=== PATIENT | male | born 1970 | race Caucasian/White ===

== ENCOUNTER 2019-06-23 20:27 | Observation (INO) ==
[2019-06-23] MEDS ORDERED: MoRPHine SULFATE 4 MG/ML 1 ML CARP\\VIAL IV STA (20:54)
[2019-06-23] MEDS ORDERED: ONDANSETRON INJ 2 MG/ML 2 ML VIAL IV STA (20:54)
--- NOTE | 2019-06-23 21:13 | Emergency Department Note ---
History of Present Illness General Chief complaint: Back Injury/Pain Stated complaint: BACK PAIN Time Seen by Provider: 06/23/19 20:43 History of Present Illness Maximum Pain Intensity: 8 This is a 49-year-old male that presents to the emergency department via private vehicle with complaints of "back pain". The patient notes that he has had back pain for the past few days, and is on the left side. Over the past few days it did calm down and then today increased. He is not sure if it is a muscle spasm or what may be causing the area of pain but notes that he has never had this bef ore. No recent trauma or injury. No chest pain, shortness of breath, fevers, chills, abdominal pain. Pain is an 8/10. It is sharp in nature. It does not radiate down the legs. No lower extremity weakness, bowel or bladder incontinence or numbness or tingling in the genital region. Home Medications Home Medications Medication Instructions Recorded Confirmed Type No Known Home Medications 06/23/19 06/23/19 History Allergies Allergy/AdvReac Type Severity Reaction Status Date / Time No Known Allergies Allergy Unverified 06/23/19 21:17 Past Med/Surg History Medical History Fatty infiltration of liver Surgical History No pertinent past surgical history Social History Preferred Language: [place] [employer] Apprentice Required: No Beliefs That Will Affect Care: None Current Living Situation: Alone Other Information That Helps Us Care for You: No Feels Safe at Home: Yes Safety Concerns: Feels Safe At This Time Smoking Status: Current every day smoker Hx Alcohol Use: No Hx Substance Use: No Review of Systems A total of 10 systems reviewed and were otherwise negative Physical Exam Vital Signs Vital Signs - 24 hr 06/23/19 20:40 06/23/19 23:40 Temperature 36.7 C Temperature Source Oral Sepsis Recent Fever Within 48 Hours No Sepsis New/Unexplained Change in Mental Status No Sepsis Action Taken by Nursing No Action Required Pulse Rate 91 H Pulse Rate [Finger] 83 Pulse Rhythm Regular Pulse Strength Normal Respiratory Rate 20 20 Respiratory Effort / Characteristics Non-Labored Spontaneous Respiratory Depth Normal Respiratory Pattern Regular Blood Pressure 120/68 Blood Pressure [Left Arm] 109/59 L Blood Pressure Mean 85 Blood Pressure Mean [Left Arm] 75 Blood Pressure Position Sitting Pulse Oximetry 96 98 Oxygen Delivery Method Room Air Room Air VITAL SIGNS - Vital signs and nursing notes were reviewed. Stable and afebrile. GENERAL -49-year-old male appearing his stated age who is in no acute distress b ut appears to be in a great deal of pain and is in the position in the bed. Communicates well with provider and answers questions appropriately. SKIN -patient has a very faint erythematous hue to the bilateral flanks (which the patient attributes to sweating recently and a "heat rash".) No evidence of herpetic lesion. HEAD - NC/AT. EYES - PERRL with EOMI bilaterally. Sclera anicteric. Palpebral conjunctiva pink and moist with no injection noted. EARS - No deformities of external structures noted on gross examination bilaterally. NOSE - Midline and without cyanosis. No epistaxis or purulent drainage noted. MOUTH/OROPHARYNX - Without perioral cyanosis. NECK - Neck with FROM. Supple to palpation. No lymphadenopathy noted. No nuchal rigidity. LUNGS - Chest wall symmetric without accessory muscle use, intercostals retractions, or central cyanosis. Normal vesicular breath sounds CTA B/L. No wheezes, rales, or rhonchi appreciated. CARDIAC - RRR with S1/S2. No murmur, rubs, or gallops appreciated. ABDOMEN - Abdominal contour normal without pulsations or visible masses. BS normoactive all four quadrants. No tenderness, palpable masses, hepatosplenomegaly, or ascites noted. MUSCULOSKELETAL: There is reproducible tenderness to palpation overlying the patient's left paraspinous musculature of the lumbar spine with palpable spasm. No direct tenderness overlying the C-spine, T-spine or L-spine. EXTREMITIES - No clubbing or peripheral cyanosis. No pretibial edema present. Patient is able to ambulate but not well on his own. +5/5 strength noted in UE/LE bilaterally. NEUROLOGIC - Cranial nerves II through XII grossly intact. Sensory intact to light touch throughout. PSYCH - A&Ox3 and cooperates fully with examiner. Pt is very pleasant and interacts well with examiner. Course Administered Medications Baclofen (Lioresal) 10 mg PO BID DANY Stop: 07/24/19 00:39 Last Admin: 06/24/19 01:30 Dose: Not Given Documented by: [id number] Hydromorphone HCl (Dilaudid) 1 mg IV Q3H PRN PRN Reason: Pain Stop: 07/08/19 00:39 Last Admin: 06/24/19 01:41 Dose: 1 mg Documented by: [id number] Discontinued Medications Baclofen (Lioresal) Confirm Administered Dose 10 mg PO .STK-MED ONE Stop: 06/24/19 00:09 Last Admin: 06/24/19 00:15 Dose: 10 mg Documented by: [id number] Diazepam (Valium) 5 mg IV NOW STA Stop: 06/23/19 22:36 Last Admin: 06/23/19 22:43 Dose: 5 mg Documented by: [id number] Hydromorphone HCl (Dilaudid) 0.5 mg IV NOW STA Stop: 06/23/19 22:09 Last Admin: 06/23/19 22:14 Dose: 0.5 mg Documented by: [id number] Sodium Chloride (Nss 1000ml) 1,000 mls @ 999 mls/hr IV .Q1H1M DANY Stop: 06/24/19 00:15 Last Infusion: 06/24/19 00:04 Dose: 0 mls/hr Documented by: [id number] Admin: 06/23/19 23:13 Dose: 999 mls/hr Documented by: [id number] Ketorolac Tromethamine (Toradol) 30 mg IV NOW STA Stop: 06/23/19 23:09 Last Admin: 06/23/19 23:17 Dose: 30 mg Documented by: [id number] Admin: 06/23/19 23:13 Dose: 30 mg Documented by: [id number] Morphine Sulfate (Morphine Sulfate) 4 mg IV NOW STA Stop: 06/23/19 20:55 Last Admin: 06/23/19 21:37 Dose: 4 mg Documented by: [id number] Ondansetron HCl (Zofran) 4 mg IV NOW STA Stop: 06/23/19 20:55 Last Admin: 06/23/19 21:35 Dose: 4 mg Documented by: [id number] Medical Decision Making Laboratory Data Result diagrams: 06/23/19 21:26 06/23/19 21:26 Lab Results 06/23/19 06/23/19 06/23/19 Range/Units 21:26 21:26 23:17 WBC 10.34 (4.8-10.8) K/uL RBC 4.06 L (4.7-6.1) M/uL Hgb 14.2 (14.0-18.0) g/dL Hct 40.1 L (42-52) % MCV 98.8 (80-100) fL MCH 35.0 H (25-34) pg MCHC 35.4 (32-36) g/dL RDW Std Deviation 45.0 (36.4-46.3) fL RDW Coeff of Piter 12.5 (11.5-14.5) % Plt Count 239 (130-400) K/uL MPV 8.9 (7.4-10.4) fL Immature Gran % (Auto) 1.6 % Neut % (Auto) 63.4 % Lymph % (Auto) 21.0 % [place] % (Auto) 6.4 % Eos % (Auto) 7.2 % Baso % (Auto) 0.4 % Immature Gran # (Auto) 0.17 H (0.00-0.02) K/uL Neut # (Auto) 6.56 H (1.4-6.5) K/uL Lymph # (Auto) 2.17 (1.2-3.4) K/uL [place] # (Auto) 0.66 H (0.11-0.59) K/uL Eos # (Auto) 0.74 H (0-0.5) K/uL Baso # (Auto) 0.04 (0-0.2) K/uL Sodium 140 (136-145) mmol/L Potassium 3.6 (3.5-5.1) mmol/L Chloride 108 H (98-107) mmol/L Carbon Dioxide 25 (21-32) mmol/L Anion Gap 7.0 (3-11) BUN 11 (7-18) mg/dl Creatinine 1.05 (0.6-1.4) mg/dl Est Cr Clr Drug Dosing 99.1 ml/min Est GFR ( Amer) 96.8 Est GFR (Non-Af Amer) 83.5 BUN/Creatinine Ratio 10.9 (10-20) Glucose 90 (70-99) mg/dl Calcium 8.8 (8.5-10.1) mg/dl Total Bilirubin 0.3 (0.2-1) mg/dl AST 32 (15-37) U/L ALT 56 (12-78) U/L Alkaline Phosphatase 87 (45-117) U/L Troponin I < 0.015 (0-0.045) ng/ml Total Protein 7.3 (6.4-8.2) gm/dl Albumin 3.5 (3.4-5.0) gm/dl Globulin 3.8 (2.5-4.0) gm/dl Albumin/Globulin Ratio 0.9 (0.9-2) Urine Color Yellow Urine Appearance Clear (Clear) Urine pH 5.0 (4.5-7.5) Ur Specific [place] 1.023 (1.000-1.030) Urine Protein Negative (Negative) Urine Glucose (UA) Negative (Negative) Urine Ketones Negative (Negative) Urine Blood Negative (Negative) Urine Nitrite Negative (Negative) Urine Bilirubin Negative (Negative) Urine Urobilinogen Negative (Negative) Ur Leukocyte Esterase Negative (Negative) Imaging Data Radiologist's Impression: CT SCAN OF THE ABDOMEN AND PELVIS WITHOUT CONTRAST CLINICAL HISTORY: Left flank and low back pain COMPARISON STUDY: No previous studies for comparison. TECHNIQUE: CT scan of the abdomen and pelvis was performed from the lung bases to the proximal femurs. Images are reviewed in the axial, sagittal, and coronal planes. IV contrast was not administered for this examination. A dose lowering technique was utilized adhering to the principles of ALARA. CT DOSE: 772.63 mGy.cm FINDINGS: Lower chest: The heart is normal in size and configuration, without pericardial effusion. The lung bases and pleural spaces are clear. Liver: There is borderline hepatic steatosis. No focal masses are visualized in this noncontrast study. Gallbladder: Unremarkable. Spleen: Normal in size and attenuation. Pancreas: Unremarkable. Adrenal glands: Unremarkable. Kidneys: There is a punctate nonobstructing left renal calculus. There is no hydronephrosis. No ureteral or bladder calculi are visualized. Bowel: There are no transition zones indicate bowel obstruction. There is no evidence of acute diverticulitis. The appendix appears normal. Peritoneum: There is no intraperitoneal free air or abdominal ascites. Vasculature: The abdominal aorta is normal in course and caliber. Adenopathy: None. Pelvic viscera: The bladder, and pelvic viscera are unremarkable. Skeletal structures: No destructive osseous lesions are seen. There are postsurgical changes of a total right hip arthroplasty IMPRESSION: 1. No acute intra-abdominal or pelvic findings 2. No evidence of bowel obstruction. No evidence of free air 3. Punctate nonobstructing left renal calculus. No ureteral or bladder calculi identified 4. Normal appendix. No evidence of acute diverticulitis. Electronically signed by: Can Hodges M.D. 06/23/2019 10:30 PM MDM Narrative Patient was seen and evaluated as above in room D06. Review was performed of nursing notes and vital signs. After obtaining a thorough history and physical examination the above work up was performed. He presents today with back pain, left side, reproducible with palpation in the paraspinous musculature of the lumbar spine. No evidence of cauda equina syndrome. No risk factors identified for epidural abscess. Faint erythematous rash noted to the patient's back but on both flanks and is not felt to be shingles. Patient notes that he was sweati ng today quite a bit and believes it is a heat rash. It does not look to be infectious nor the cause of his pain. I will note that although this is felt to initially have been a muscle spasm in the lumbar region such as from a strain his pain seems to be much more. For that reason additional work-up was performed. CBC reveals no leukocytosis or anemia. Metabolic panel is negative. Urinalysis is negative. CT scan of the abdomen and pelvis without contrast was also ordered and was negative. Because of the continued pain despite multiple rounds of IV medication and rest, decision was made to obtain an EKG and troponin to further the work-up. Although the troponin was negative the EKG was abnormal. There were multiple T wave inversions throughout the EKG. Patient denied chest pain. I do believe that further evaluation and management in the inpatient setting is warranted and discussed the findings with the hospitalist. He will be admitted for further evaluation and management. Patient was amenable to staying. Case was discussed with the attending physician. GCS: 15 In the evaluation and treatment of this patient the following differential diagnosis entertained: Fracture, dislocation, subluxation, cauda equina syndrome, AAA, diverticulitis, appendicitis, torsion, osteomyelitis, piriformis syndrome, strain, sprain, among others. Impression & Plan Acute left-sided low back pain Discharge Plan Visit Data *Final* Discharge Date/Time: 06/24/19 00:16 Chief Complaint: Back Injury/Pain Stated Complaint: BACK PAIN ED Provider: Vijay Stone ED Midlevel Provider: Tyler Hoffman Discharge Problem: Acute left-sided low back pain Patient Disposition: Admitted As Inpatient Condition: Good Discharge Instructions Interventions: ED Discharge Assessment Last Done: 06/24/19 00:16
[2019-06-23 21:40] LABS: Basophils # (auto) 0.04 K/uL (0-0.2); Basophils % (auto) 0.4 %; Eosinophils # (auto) 0.74 K/uL (0-0.5); Eosinophils % (auto) 7.2 %; Hematocrit (blood only) 40.1 % (42-52); Hemoglobin 14.2 g/dL (14.0-18.0); Immature Granulocytes # (auto) 0.17 K/uL (0.00-0.02); Immature Granulocytes % (auto) 1.6 %; Lymphocytes # (auto) 2.17 K/uL (1.2-3.4); Mean Corpuscular Hgb Conc 35.4 g/dL (32-36); Mean Corpuscular Volume 98.8 fL (80-100); Mean Platelet Volume 8.9 fL (7.4-10.4); Monocytes # (auto) 0.66 K/uL (0.11-0.59); Monocytes % (auto) 6.4 %; Neutrophils # (auto) 6.56 K/uL (1.4-6.5); Neutrophils % (auto) 63.4 %; Platelet Count 239 K/uL (130-400); RDW Coefficient of Variation 12.5 % (11.5-14.5); Red Blood Count 4.06 M/uL (4.7-6.1); White Blood Count 10.34 K/uL (4.8-10.8)
[2019-06-23 22:00] LABS: Alanine Aminotransferase 56 U/L (12-78); Albumin Level 3.5 gm/dl (3.4-5.0); Aspartate Aminotransferase 32 U/L (15-37); BUN Creatinine Ratio 10.9 (10-20); Blood Urea Nitrogen 11 mg/dl (7-18); Calcium 8.8 mg/dl (8.5-10.1); Carbon Dioxide 25 mmol/L (21-32); Chloride 108 mmol/L (98-107); Creatinine Clr Calc Pharmacy 99.1 ml/min; Est GFR (African American) 96.8; Est GFR (Non-African American) 83.5; Glucose 90 mg/dl (70-99); Potassium 3.6 mmol/L (3.5-5.1); Sodium 140 mmol/L (136-145)
[2019-06-23 22:02] LABS: Albumin Globulin Ratio 0.9 (0.9-2); Alkaline Phosphatase 87 U/L (45-117); Bilirubin,Total 0.3 mg/dl (0.2-1); Globulin 3.8 gm/dl (2.5-4.0); Total Protein 7.3 gm/dl (6.4-8.2)
[2019-06-23] MEDS ORDERED: HYDROmorphone INJ 0.5 MG/0.5 ML SYR IV STA (22:08)
--- NOTE | 2019-06-23 22:31 | CT Scan Report ---
CT SCAN OF THE ABDOMEN AND PELVIS WITHOUT CONTRAST CLINICAL HISTORY: Left flank and low back pain COMPARISON STUDY: No previous studies for comparison. TECHNIQUE: CT scan of the abdomen and pelvis was performed from the lung bases to the proximal femurs . Images are reviewed in the axial, sagittal, and coronal planes. IV contrast was not administered fo r this examination. A dose lowering technique was utilized adhering to the principles of ALARA. CT DOSE: 772.63 mGy.cm FINDINGS: Lower chest: The heart is normal in size and configuration, without pericardial effusion. The lung ba ses and pleural spaces are clear. Liver: There is borderline hepatic steatosis. No focal masses are visualized in this noncontrast stud y. Gallbladder: Unremarkable. Spleen: Normal in size and attenuation. Pancreas: Unremarkable. Adrenal glands: Unremarkable. Kidneys: There is a punctate nonobstructing left renal calculus. There is no hydronephrosis. No urete ral or bladder calculi are visualized. Bowel: There are no transition zones indicate bowel obstruction. There is no evidence of acute divert iculitis. The appendix appears normal. Peritoneum: There is no intraperitoneal free air or abdominal ascites. Vasculature: The abdominal aorta is normal in course and caliber. Adenopathy: None. Pelvic viscera: The bladder, and pelvic viscera are unremarkable. Skeletal structures: No destructive osseous lesions are seen. There are postsurgical changes of a tot al right hip arthroplasty IMPRESSION: 1. No acute intra-abdominal or pelvic findings 2. No evidence of bowel obstruction. No evidence of free air 3. Punctate nonobstructing left renal calculus. No ureteral or bladder calculi identified 4. Normal appendix. No evidence of acute diverticulitis. Electronically signed by: Can Hodges M.D. 06/23/2019 10:30 PM
[2019-06-23] MEDS ORDERED: DIAZEPAM 5 MG/ML INJ 10ML VIAL IV STA (22:35)
[2019-06-23] MEDS: KETOROLAC 30 MG/ML VIAL IV STA ×2 (23:13→23:17)
[2019-06-23] MEDS ORDERED: SODIUM CHLORIDE 0.9% 1000ML 1,000 ML IV SCH (23:15)
[2019-06-23 23:26] LABS: Appearance Urine Clear (Clear); Bilirubin Urine Negative (Negative); Blood Urine Negative (Negative); Color Urine Yellow; Glucose Urine UA Negative (Negative); Ketones Urine Negative (Negative); Leukocyte Esterase Urine Negative (Negative); Nitrite Urine Negative (Negative); Protein Urine Negative (Negative); Specific Gravity Urine 1.023 (1.000-1.030); Urobilinogen Urine Negative (Negative)
[2019-06-23 23:58] LABS: Troponin I < 0.015 ng/ml (0-0.045)
[2019-06-24] MEDS ORDERED: BACLOFEN 10 MG TAB PO ONE (00:08)
[2019-06-24] MEDS ORDERED: ONDANSETRON INJ 2 MG/ML 2 ML VIAL IV PRN (00:40)
[2019-06-24] MEDS ORDERED: ACETAMINOPHEN 325 MG TAB PO PRN (00:40)
[2019-06-24] MEDS ORDERED: POLYETHYLENE (MIRALAX) 17 GM PACK PO PRN (00:40)
[2019-06-24] MEDS ORDERED: HYDROmorphone INJ 1 MG/ML SYRINGE IV PRN (00:40)
--- NOTE | 2019-06-24 00:45 | History and Physical Report ---
DATE OF ADMISSION: 06/23/2019 CHIEF COMPLAINT: Severe back pain. HISTORY OF PRESENT ILLNESS: This 49-year-old male with no significant past medical history, not on any medications, history of alcoholism, asthma presents with severe back pain. The patient is from [place], he is working in [employer] area. He says he is having ongoing back pain since last 2 days, but got worse today and came to the ER. Received Dilaudid, Toradol, morphine and Valium, still has significant pain. CT of abdomen and pelvis was done which was unremarkable. There is some macular rash in the right flank region, but he says that is heat rash because of putting some heat pads. Requesting for pain medications .Currently hemodynamically stable. Denies any other medical problems. Denies any diarrhea or constipation. No bowel or bladder incontinence. He says he is not able to ambulate because of severe pain and is crunching in the bed. Denies any chest pain, no shortness of breath, no cough, no fever, no chills, no headache, no blurred vision, no earache, no runny nose. No nausea, no vomiting, no abdominal pain. Otherwise, he is doing okay. ALLERGIES: No known drug allergies. PAST MEDICAL HISTORY: Denies any past medical history. PAST SURGICAL HISTORY: status post hip surgery. MEDICATIONS: None. FAMILY HISTORY: Denies any family history. SOCIAL HISTORY: Says he smokes less than half pack a day. He used to drink alcohol in the past but left long time ago. Denies any drug use. REVIEW OF SYMPTOMS: As per HPI. Rest of review of symptoms negative. PHYSICAL EXAMINATION: GENERAL: The patient is of moderate build, not in acute distress. VITAL SIGNS: Temperature 36.7, pulse 83, respiratory rate 20, blood pressure 109/59, oxygen 98% on room air. HEENT: No pallor, no icterus. Pupils equal, round, reactive to light. NECK: No neck masses. Supple. CARDIOVASCULAR: S1, S2 heard, regular rate and rhythm, no murmur, no gallop. RESPIRATORY SYSTEM: Normal AP diameter. No accessory muscle use. No wheezing, no crackles. ABDOMEN: Soft, bowel sounds present, nontender. No distention. CENTRAL NERVOUS SYSTEM: Nonfocal. EXTREMITIES: No edema, no erythema. MUSCULOSKELETAL: No spinal tenderness appreciated. SKIN: mild macular rash in the left flank region. LABORATORY DATA: WBC 10, hemoglobin 14.2, hematocrit 40.1, platelets 239. Sodium 140, potassium 3.6, chloride 108, bicarbonate 25, BUN 11, creatinine 1.05, serum glucose 90, calcium 8.8, total bilirubin 0.3, AST 32, ALT 56, alkaline phosphatase 87. Troponin I less than 0.015. Urinalysis is negative. CT abdomen and pelvis, no evidence of intra-abdominal or pelvic findings, no evidence of bowel obstruction, no evidence of free air punctate, nonobstructing left renal calculus, no ureteral or bladder calculi identified and normal appendix. No evidence of acute diverticulitis. EKG:Sinus rhythm at rate of 77. non specific t wave abnormality ASSESSMENT AND PLAN: This 49-year-old male who presents with severe back pain, intractable back pain, on the left side, nonradiating, going on for last [address] of abdomen and pelvis unremarkable. Labs were unremarkable. Received significant pain medication in the ER, still has a lot of pain and ambulatory dysfunction. We will observe patient in the hospital. We will give IV Dilaudid p.r.n. We will place patient on baclofen. PT and OT. If it is not improving, will consider MRI and pain management consult. ER checked [place] drug monitoring [place] and no recent narcotic meds as per ER. 2. Tobacco abuse. Needs counseling. 3. Questionable ekg changes. T wave inversions in inferior leads in first ekg and it was not a good study. Repeat ekg was unremarkable. Troponin negative. No chest pain or sob.Monitor in tele. Follw serial CE. 4. Deep venous thrombosis prophylaxis, sequential compression devices for now. DISPOSITION: Observation in medical floor. PT and OT prior to discharge. Social Service to help with discharge planning. MARLENE
[2019-06-24 01:25] LABS: Creatine Kinase 269 U/L (39-308); Troponin I < 0.015 ng/ml (0-0.045)
[2019-06-24] MEDS: BACLOFEN 10 MG TAB PO SCH ×2 (01:30→08:13)
[2019-06-24 07:10] LABS: Basophils # (auto) 0.05 K/uL (0-0.2); Basophils % (auto) 0.6 %; Eosinophils # (auto) 0.72 K/uL (0-0.5); Eosinophils % (auto) 9.1 %; Hematocrit (blood only) 41.1 % (42-52); Hemoglobin 13.7 g/dL (14.0-18.0); Immature Granulocytes # (auto) 0.18 K/uL (0.00-0.02); Immature Granulocytes % (auto) 2.3 %; Lymphocytes # (auto) 2.13 K/uL (1.2-3.4); Lymphocytes % (auto) 26.8 %; Mean Corpuscular Hgb Conc 33.3 g/dL (32-36); Mean Platelet Volume 9.2 fL (7.4-10.4); Monocytes # (auto) 0.59 K/uL (0.11-0.59); Monocytes % (auto) 7.4 %; Neutrophils # (auto) 4.28 K/uL (1.4-6.5); Neutrophils % (auto) 53.8 %; Platelet Count 216 K/uL (130-400); RDW Coefficient of Variation 12.6 % (11.5-14.5); RDW Standard Deviation 46.3 fL (36.4-46.3); Red Blood Count 4.07 M/uL (4.7-6.1); White Blood Count 7.95 K/uL (4.8-10.8)
[2019-06-24 07:47] LABS: BUN Creatinine Ratio 14.7 (10-20); Calcium 8.2 mg/dl (8.5-10.1); Creatinine Clr Calc Pharmacy 121.5 ml/min; Est GFR (African American) 119.4; Magnesium 2.4 mg/dl (1.8-2.4); Potassium 3.6 mmol/L (3.5-5.1)
--- NOTE | 2019-06-24 11:43 | Hospitalist Progress Note ---
Date of Service June 24, 2019 Assessment & Plan (1) Acute left-sided low back pain: ASSESSMENT AND PLAN: This 49-year-old male who presents with severe back pain, intractable back pain, on the left side, nonradiating, going on for last [address] of abdomen and pelvis unremarkable. Labs were unremarkable. Received significant pain medication in the ER, still has a lot of pain and ambulatory dysfunction. We will observe patient in the hospital. NSAIDS, PO Tylenol, PO OXY, IV MSO4, Elavil, ICE, PT and OT. If it is not improving, will consider MRI and pain management consult. ER checked [place] drug monitoring [place] and no recent narcotic meds as per ER. 2. Tobacco abuse. Needs counseling. 3. Questionable ekg changes. T wave inversions in inferior leads in first ekg and it was not a good study. Repeat ekg was unremarkable. Troponin negative. No chest pain or sob. DC tele. 4. Deep venous thrombosis prophylaxis, sequential compression devices for now. DISPOSITION: Observation on medical floor. PT and OT prior to discharge. Social Service to help with discharge planning. ROS-No Headache, No Visual Changes, No Nausea, No Vomiting, No Fever, No Chills, No Neck Pain or Stiffness, No Chest Pain, No Palpitations, No SOB, No ROSS, No Cough, No Sputum, No Wheezing, No Abdominal Pain, No Diarrhea, No Hematemesis, No Hemoptysis, No Unexpected Weight Loss, No Flank pain, No Melena, No Hematochezia, No Frequency, No Urgency, No Burning, No Hematuria, No Rashes, No Diaphoresis. Appetite is Normal, +Back Pain Physical Exam Gen-AAO x 3, NAD, Afebrile, Oversedated Head-NCAT, EOMI, PERRLA, Anicteric Sclera, No Posterior Pharyngeal Erythema Neck-Supple, No JVD, No Thyromegaly, No Masses, No LAD, No Bruits Lungs-Clear to Auscultation Bilaterally, No Rales, No Rhonchi, No Wheezing, No Crepitus Chest-No S4, +S1, +S2, No S3, No Murmurs, No Rubs, No Gallops, No Ectopy Abdomen-Soft, Bowel Sounds Present, Non Tender, Non Distended, No Hepatomegaly, No Splenomegaly, No Palpable Masses, No Rebound, No Rigidity, No Guarding Musculoskeletal-Full Range of Motion Bilaterally, No CVAT Extremities-No Cyanosis, No Clubbing, No Edema Nuero-Cranial Nerves II-XII grossly intact, Motor WNL, DTRs WNL, Strength WNL, Non Focal Psych-Normal Mood Results & Data Vital Signs (Past 12 Hours) Vital Signs Temp Pulse Pulse Resp BP BP Pulse Ox 06/24/19 08:00 65 06/24/19 07:22 36.3 C L 73 16 114/73 06/24/19 03:21 36.5 C 65 17 104/61 96 06/24/19 01:22 36.5 C 75 16 115/68 95 06/24/19 00:41 36.4 C L 77 20 109/68 96 06/24/19 00:16 85 20 142/90 H 98 06/23/19 23:40 83 20 109/59 L 98 Labs checked
[2019-06-24] MEDS ORDERED: MoRPHine SULFATE 10 MG/ML CARP/VIAL IV PRN (11:44)
[2019-06-24] MEDS ORDERED: OXYCODONE HCL IR 5 MG TAB (IMMEDIATE RELEASE) PO PRN (11:47)
[2019-06-24] MEDS ORDERED: ACETAMINOPHEN 500 MG TAB PO SCH (14:00)
[2019-06-24] MEDS: AMITRIPTYLINE HCL 25 MG TAB PO SCH ×2 (14:55→22:17)
[2019-06-24] MEDS: ACETAMINOPHEN 500 MG TAB PO SCH ×3 (14:55→22:17)
[2019-06-25] MEDS: ACETAMINOPHEN 500 MG TAB PO SCH ×6 (01:59→21:52)
[2019-06-25] MEDS: AMITRIPTYLINE HCL 25 MG TAB PO SCH ×3 (05:59→21:52)
--- NOTE | 2019-06-25 11:38 | Discharge Summary ---
Date of Service June 25, 2019 Admission HPI Per Admitting Provider HISTORY OF PRESENT ILLNESS: This 49-year-old male with no significant past medical history, not on any medications, history of alcoholism, asthma presents with severe back pain. The patient is from [place], he is working in [place] area. He says he is having ongoing back pain since last 2 days, but got worse today and came to the ER. Received Dilaudid, Toradol, morphine and Valium, still has significant pain. CT of abdomen and pelvis was done which was unremarkable. There is some macular rash in the right flank region, but he says that is heat rash because of putting some heat pads. Requesting for pain medications .Currently hemodynamically stable. Denies any other medical problems. Denies any diarrhea or constipation. No bowel or bladder incontinence. He says he is not able to ambulate because of severe pain and is crunching in the bed. Denies any chest pain, no shortness of breath, no cough, no fever, no chills, no headache, no blurred vision, no earache, no runny nose. No nausea, no vomiting, no abdominal pain. Otherwise, he is doing okay. Admission Exam Per Admitting Provider GENERAL: The patient is of moderate build, not in acute distress. VITAL SIGNS: Temperature 36.7, pulse 83, respiratory rate 20, blood pressure 109/59, oxygen 98% on room air. HEENT: No pallor, no icterus. Pupils equal, round, reactive to light. NECK: No neck masses. Supple. CARDIOVASCULAR: S1, S2 heard, regular rate and rhythm, no murmur, no gallop. RESPIRATORY SYSTEM: Normal AP diameter. No accessory muscle use. No wheezing, no crackles. ABDOMEN: Soft, bowel sounds present, nontender. No distention. CENTRAL NERVOUS SYSTEM: Nonfocal. EXTREMITIES: No edema, no erythema. MUSCULOSKELETAL: No spinal tenderness appreciated. SKIN: mild macular rash in the left flank region. Principal Diagnosis Back Pain Discharge Exam Physical Exam Gen-AAO x 3, NAD, Afebrile, Oversedated Head-NCAT, EOMI, PERRLA, Anicteric Sclera, No Posterior Pharyngeal Erythema Neck-Supple, No JVD, No Thyromegaly, No Masses, No LAD, No Bruits Lungs-Clear to Auscultation Bilaterally, No Rales, No Rhonchi, No Wheezing, No Crepitus Chest-No S4, +S1, +S2, No S3, No Murmurs, No Rubs, No Gallops, No Ectopy Abdomen-Soft, Bowel Sounds Present, Non Tender, Non Distended, No Hepatomegaly, No Splenomegaly, No Palpable Masses, No Rebound, No Rigidity, No Guarding Musculoskeletal-Full Range of Motion Bilaterally, No CVAT Extremities-No Cyanosis, No Clubbing, No Edema Nuero-Cranial Nerves II-XII grossly intact, Motor WNL, DTRs WNL, Strength WNL, Non Focal Psych-Normal Mood Discharge Data Allergies Allergy/AdvReac Type Severity Reaction Status Date / Time No Known Allergies Allergy Unverified 06/23/19 21:17 Consultations 06/23/19 23:25 ED Decision to Admit Stat Current Diagnoses Low back pain (06/23/19) Allergies No Known Allergies Allergy (Unverified 06/23/19 21:17) Height/Weight/Isolation Height 5 ft 10 in Weight 92.5 kg Chemistry 06/23/19 06/24/19 21:26 06:36 Sodium 140 141 Potassium 3.6 3.6 Chloride 108 H 107 Carbon Dioxide 25 27 Anion Gap 7.0 7.0 BUN 11 12 Creatinine 1.05 0.85 Glucose 90 90 Urinalysis 06/23/19 23:17 Urine Color Yellow Urine Appearance Clear Urine pH 5.0 Ur Specific [place] 1.023 Urine Protein Negative Urine Glucose (UA) Negative Urine Ketones Negative Urine Blood Negative Urine Nitrite Negative Urine Bilirubin Negative Ordered Studies 06/23/19 20:53 CT abd pelvis wo con IMPRESSION: 1. No acute intra-abdominal or pelvic findings 2. No evidence of bowel obstruction. No evidence of free air 3. Punctate nonobstructing left renal calculus. No ureteral or bladder calculi identified 4. Normal appendix. No evidence of acute diverticulitis. Hospital Course (1) Acute left-sided low back pain: ASSESSMENT AND PLAN: This 49-year-old male who presents with severe back pain, intractable back pain, on the left side, nonradiating, going on for last [address] of abdomen and pelvis unremarkable. Labs were unremarkable. Received significant pain medication in the ER, still has a lot of pain and ambulatory dysfunction. We will observe patient in the hospital. NSAIDS, PO Tylenol, PO OXY, IV MSO4, Elavil, ICE, PT and OT. If it is not improving, will consider MRI and pain management consult. ER checked [place] drug monitoring system and no recent narcotic meds as per ER. 2. Tobacco abuse. Needs counseling. 3. Questionable ekg changes. T wave inversions in inferior leads in first ekg and it was not a good study. Repeat ekg was unremarkable. Troponin negative. No chest pain or sob. DC tele. 4. Deep venous thrombosis prophylaxis, sequential compression devices for now. DISPOSITION: [place] home Social Service to help with discharge planning. ROS-No Headache, No Visual Changes, No Nausea, No Vomiting, No Fever, No Chills, No Neck Pain or Stiffness, No Chest Pain, No Palpitations, No SOB, No ROSS, No Cough, No Sputum, No Wheezing, No Abdominal Pain, No Diarrhea, No Hematemesis, No Hemoptysis, No Unexpected Weight Loss, No Flank pain, No Melena, No Hematochezia, No Frequency, No Urgency, No Burning, No Hematuria, No Rashes, No Diaphoresis. Appetite is Normal, +Back Pain Physical Exam Gen-AAO x 3, NAD, Afebrile, Oversedated Head-NCAT, EOMI, PERRLA, Anicteric Sclera, No Posterior Pharyngeal Erythema Neck-Supple, No JVD, No Thyromegaly, No Masses, No LAD, No Bruits Lungs-Clear to Auscultation Bilaterally, No Rales, No Rhonchi, No Wheezing, No Crepitus Chest-No S4, +S1, +S2, No S3, No Murmurs, No Rubs, No Gallops, No Ectopy Abdomen-Soft, Bowel Sounds Present, Non Tender, Non Distended, No Hepatomegaly, No Splenomegaly, No Palpable Masses, No Rebound, No Rigidity, No Guarding Musculoskeletal-Full Range of Motion Bilaterally, No CVAT Extremities-No Cyanosis, No Clubbing, No Edema Nuero-Cranial Nerves II-XII grossly intact, Motor WNL, DTRs WNL, Strength WNL, Non Focal Psych-Normal Mood Total Time Total Time Spent Total Time Spent (In Minutes): 40 mins Total Time Includes: Examination of the Patient, Discharge Planning, Medication Reconciliation and Communication With Other Providers Discharge Plan Discharge Items Patient Disposition: Home - Self-Care Reason For Visit: SEVERE BACK PAIN Discharge Diagnosis: Back Pain Condition: Good Discharge Goals: Decrease discomfort and Improve function Activity: Resume your previous activity Activity Comment: As Tolerated Lifting: Gradually increase as tolerated Bathing: No limitations Sexual Activity: When tolerated Exercise/Sports: Gradually increase as tolerated Driving/Machine Use: No limitations Weightbearing: Full weightbearing Non-emergency contact: Primary Care Provider Call non-emergency contact if: you have any medication questions and your symptoms worsen Follow-up/Referrals: PCP,NO [Primary Care Provider] - Diet: Regular Addtl Provider Instructions: Follow up [facility] as needed Prescriptions: New acetaminophen [Tylenol Extra Strength] 500 mg Tablet 500 mg PO Q4H Qty: 100 RF: 0 amitriptyline 25 mg Tablet 50 mg PO HS PRN (Reason: back pain) Qty: 10 RF: 0 oxycodone 5 mg Tablet 5 mg PO Q4H PRN (Reason: pain) Qty: 30 RF: 0 ibuprofen 600 mg tablet 600 mg PO Q6H Qty: 100 RF: 0 No Action No Known Home Medications RF: 0 Stand-Alone Forms: [facility], [facility] Discharge Orders: Discharge Order (Routine); Ordered 06/25/19 Ordered By: David Alfred Admission Data Admit Date/Time: 06/23/19 23:58 Attending Provider: David Alfred Admit Provider: Vladimir Richey Primary Care Provider: PCP,NO Other Providers: Vladimir Richey Service: Telemetry
[2019-06-25] MEDS: KETOROLAC 30 MG/ML VIAL IV PRN (19:31)
[2019-06-26] MEDS: ACETAMINOPHEN 500 MG TAB PO SCH ×3 (02:11→10:29)
[2019-06-26] MEDS: AMITRIPTYLINE HCL 25 MG TAB PO SCH (05:54)
[2019-06-26] MEDS: KETOROLAC 30 MG/ML VIAL IV PRN (05:57)
== END 2019-06-26 13:03 | disposition home or self-care (01) ==
LOC: 3W 20:27 → ED 20:27 → SUATTDRO 23:58 → 3W 06-24 00:16 → 2S 06-24 01:50 → 4W 06-25 17:59